=== PATIENT | female | born 1935 | race Caucasian/White ===

== ENCOUNTER → 2016-05-19 | Outpatient (CLI) | payer MEDICARE, BC ==
[~2016-05-19] MED LIST: ACETAMINOPHEN PO; AMITRYPTYLINE PO; ARICEPT5 M1 PO; ARTIFICIAL TEAR15 M4 OP; ARTIFICIAL15 ML OPTH OP; ASPIRIN81 M1 PO; AUGMENTIN PO; BENTYL20 MG PO; BLACK COHOSH40 M1 PO; BREO ELLIPTA 11 EACH INH; DESYREL50 MG PO; DIAZEPAM PO; DIAZEPAM2 MG PO; EVISTA60 M1 PO; FLONASE 0.05% N16 G1; HYDROCHLOROTH12.5 MG PO; ISOSORBIDE MONO30 M1 PO; LATANOPROST2.5 ML OU; LEVAQUIN PO; LEVOXYL150 MCG PO; LO-DOSE ASPIRIN81 M1 PO; LORTAB 5/500 TA1 TA1 PO; LOSARTAN POTASS50 MG PO; METOPROLOL SUCC25 MG PO; NITROGLYGERIN0.4 MG SL; NORVASC PO; PRAVASTATIN SOD40 MG PO; PRILOSEC20 M1 PO; RESTASIS1 EACH OU; SERTRALINE HCL100 M1 PO; SYNTHROID125 PO; TRICOR145 MG PO; VITAMIN D 22000 UNIT PO; ZOFRAN PO; ZOLOFT PO
--- NOTE | ~2016-05-19 | CR242 ---
[facility] A Service [facility] RADIOLOGY TEXT RESULTS PATIENT: MELBA WATKINS LOCATION: [facility] : 34 UNIT #: [id number] AGE: [address]: Whit Meyers MD SEX: F ORDER DR: [id number] [place] [id number] O MR#: [id number] Acc #: [id number] NAME: MELBA WATKINS : 1935 SEX: F STUDY DATE/TIME: 05/19/2016 14:03 UNIT: [facility] ROOM: STUDY DESCRIPTION: CR Thoracic Spine 2 Views Attending Physician: Whit Meyers M.D. Referring Physician: Micha Meyers M.D. Ordering Physician: Whit Meyers M.D. Primary Care Physician: Whit Meyers M.D. MEDICAL IMAGING REPORT This report is preliminary unless electronic signature is present. EXAM Thoracic spine series HISTORY Back pain beginning 4 days ago COMPARISON 01/31/2016 TECHNIQUE AP and lateral views of the thoracic spine were obtained. FINDINGS The AP view demonstrates a thoracic scoliosis unchanged from previous exam. On the lateral view there is exaggerated thoracic kyphosis. No fractures or destructive bone lesions are seen. The pedicles are intact at each level. No paraspinous masses are noted. IMPRESSION Scoliosis with mild multilevel thoracic degenerative disc disease. No acute bony abnormalities are seen. Dictated by... Angelito Peacock M.D. THIS IS AN ELECTRONICALLY VERIFIED REPORT Angelito Peacock M.D. at 05/19/2016 6:02 PM RLF/to TD: 05/19/2016 15:47 JOB #: [id number] [facility] A [facility] RADIOLOGY TEXT RESULTS PATIENT: MELBA WATKINS LOCATION: [facility] : 34 UNIT #: [id number] AGE: [address]: Whit Meyers MD SEX: F ORDER DR: MEDICAL IMAGING REPORT Page 1 of 1
--- NOTE | ~2016-05-19 | CR181 ---
[facility] A Service [facility] RADIOLOGY TEXT RESULTS PATIENT: MELBA WATKINS LOCATION: [facility] : 34 UNIT #: [id number] AGE: [address]: Whit Meyers MD SEX: F ORDER DR: [id number] [place] [id number] O MR#: [id number] Acc #: [id number] NAME: MELBA WATKINS : 1935 SEX: F STUDY DATE/TIME: 05/19/2016 14:03 UNIT: [facility] ROOM: STUDY DESCRIPTION: CR Lumbar Spine 2 or 3 Views Attending Physician: Whit Meyers M.D. Referring Physician: Micha Meyers M.D. Ordering Physician: Whit Meyers M.D. Primary Care Physician: Whit Meyers M.D. MEDICAL IMAGING REPORT This report is preliminary unless electronic signature is present. EXAM Lumbar spine series 05/19/2016 HISTORY Back pain beginning 4 days ago. COMPARISON 01/19/2009 TECHNIQUE 3 views lumbar spine were obtained. FINDINGS There is exaggerated lumbar lordosis with multilevel degenerative disc disease. This has progressed significantly since 2008. There is advanced degenerative disc disease at L1-2 with disc space narrowing and large osteophytes showing marked progression. At L2-3 there is a degenerative retrolisthesis with disc space narrowing also showing marked progression. There is a degenerative retrolisthesis across L3-4 with mild disc space narrowing. This shows mild progression since the previous exam. At L4-5 there is a grade 1 spondylolisthesis with lipping of the posterior margin of L5. There is moderate disc space narrowing and moderate facet hypertrophy. At L5-S1 there is mild degenerative disc disease and moderate bilateral facet disease. No fractures or destructive bone lesions are seen. IMPRESSION Multilevel lumbar degenerative disc and facet disease as described above level by level with malalignment at multiple levels. Overall significant progression of disease since 2008 as described above level by level. [facility] A [facility] RADIOLOGY TEXT RESULTS PATIENT: MELBA WATKINS LOCATION: [facility] : 34 UNIT #: [id number] AGE: [address]: Whit eMyers MD SEX: F ORDER DR: Dictated by... Angelito Peacock M.D. THIS IS AN ELECTRONICALLY VERIFIED REPORT Angelito Peacock M.D. at 05/19/2016 6:02 PM MAYRA/bonilla TD: 05/19/2016 15:57 JOB #: [id number] MEDICAL IMAGING REPORT Page 1 of 1
== END | disposition home or self-care (01) ==
LOC: SRAD 13:56
DX: M54.5 Low back pain (principal); M54.6 Pain in thoracic spine; M41.9 Scoliosis, unspecified; M51.34 Other intervertebral disc degeneration, thoracic region; M51.36 Other intervertebral disc degeneration, lumbar region
CPT/HCPCS: 72070; 72100

== ENCOUNTER 2016-06-09 18:21 | Emergency (ER) | payer MEDICARE, BC ==
--- NOTE | ~2016-06-09 | CT2 ---
[facility] A Service of [facility] RADIOLOGY TEXT RESULTS PATIENT: MELBA WATKINS LOCATION: [facility] : 34 UNIT #: [id number] AGE: [address]: Violeta Osorio MD SEX: F ORDER DR: [id number] [place] [id number] [facility]. [place], [place] [address] [id number] E MR#: [id number] Acc #: [id number] NAME: MELBA WATKINS : 1935 SEX: F STUDY DATE/TIME: 06/09/2016 20:32 UNIT: [facility] ROOM: STUDY DESCRIPTION: CT Abd and Pelv W Cont Attending Physician: Violeta Osorio M.D. Referring Physician: Whit Meyers M.D. Ordering Physician: Violeta Osorio M.D. Primary Care Physician: Whit Meyers M.D. MEDICAL IMAGING REPORT This report is preliminary unless electronic signature is present EXAM Abdomen and pelvis CT with contrast HISTORY Mid abdominal pain with nausea and diarrhea beginning this morning. COMPARISON 04/06/[address] exam was performed with one or more of the following radiation dose reduction techniques: automatic exposure control, adjustment of mA and/or kV according to patient size, and iterative reconstruction. Axial images were obtained with intravenous contrast. 100 mL of Isovue was used. FINDINGS There is a small right pleural effusion. This is unchanged from previous exam. There is mild scarring in the inferior lingular segment that is also unchanged. In the abdomen, no upper abdominal solid organ abnormalities are seen. There is no evidence of retroperitoneal adenopathy or ascites and no distended bowel loops are noted. In the pelvis, there is no evidence of adenopathy. There is a segment of sigmoid colon that shows somewhat prominent mucosal enhancement and mild mucosal thickening suspicious for colitis. Diverticula are seen in this area, but this does not appear represent diverticulitis. There is certainly no evidence of an abscess. Apparent postoperative changes are seen in the rectosigmoid area. The area of inflammation is just above the anastomosis. [facility] A Service of [facility] RADIOLOGY TEXT RESULTS PATIENT: MELBA WATKINS LOCATION: [facility] : 34 UNIT #: [id number] AGE: [address]: Violeta Osorio MD SEX: F ORDER DR: IMPRESSION 1. Mild mucosal thickening and mucosal enhancement in the sigmoid colon suggesting colitis over a fairly short segment. No evidence of abscess or perforation. There is also diverticulosis in this area but no evidence of diverticulitis. 2. Upper abdominal structures are unremarkable. 3. Small right pleural effusion noted but unchanged from the previous CT of 04/06/2016. Dictated by... Angelito Peacock M.D. THIS IS AN ELECTRONICALLY VERIFIED REPORT Angelito Peacock M.D. at 06/10/2016 10:07 AM MAYRA/amada TD: 06/09/2016 22:25 JOB #: [id number] MEDICAL IMAGING REPORT Page 1 of 1 COPY
[~2016-06-09 18:21] MED LIST changes: -ARICEPT5 M1 PO; -BENTYL20 MG PO; -BREO ELLIPTA 11 EACH INH; -DESYREL50 MG PO; -DIAZEPAM2 MG PO; -FLONASE 0.05% N16 G1; -ISOSORBIDE MONO30 M1 PO; -LATANOPROST2.5 ML OU; -LO-DOSE ASPIRIN81 M1 PO; -LOSARTAN POTASS50 MG PO; -METOPROLOL SUCC25 MG PO; -NITROGLYGERIN0.4 MG SL; -NORVASC PO; -RESTASIS1 EACH OU; -SERTRALINE HCL100 M1 PO; -SYNTHROID125 PO; -VITAMIN D 22000 UNIT PO; -ZOFRAN PO
[2016-06-09 18:49] LABS: BASOPHIL# 0.1 X10e3 (0-0.3); BASOPHIL% 0.8 % (0-2.5); EOSINOPHIL# 0.2 X10e3 (0-0.7); EOSINOPHIL% 1.6 % (0.0-7.0); HEMATOCRIT 36.6 % (35.0-45.0); HEMOGLOBIN 11.8 gm/dL (12.0-16.0); LYMPHOCYTE# 1.6 X10e3 (1.0-3.5); LYMPHOCYTE% 14.6 % (17.0-45.0); MEAN CELL VOLUME 88.4 FL (83-96); MEAN CORPUSCULAR HEMOGLOBIN 28.6 PG (28-34); MEAN CORPUSCULAR HGB CONC 32.3 g/dL (30-36); MEAN PLATELET VOLUME 7.8 FL (6.5-11.5); MONOCYTE# 0.7 X10e3 (0-1.0); MONOCYTE% 6.5 % (3.0-12.0); NEUTROPHIL# 8.5 X10e3 (1.5-7.1); NEUTROPHIL% 76.5 % (40-75); PLATELET COUNT 184 X10e3 (140-420); RED BLOOD COUNT 4.14 X10e (3.90-5.30); WHITE BLOOD COUNT 11.1 X10e3 (4.0-10.5)
[2016-06-09 18:52] LABS: DIFF IND NO
[2016-06-09 19:12] LABS: ALBUMIN SERUM 3.9 g/dL (3.5-5.0); BILIRUBIN, DIRECT 0.1 mg/dL (0.0-0.2); BILIRUBIN,INDIRECT 0.9 mg/dL (0.0-0.9); BUN/CREATININE RATIO 27.77; CALCIUM SERUM 9.2 mg/dL (8.4-10.2); CREATININE SERUM 0.9 mg/dL (0.6-1.4); PROTEIN TOTAL SERUM 7.2 g/dL (6.0-8.3)
[2016-06-09 19:58] LABS: URINE SOURCE CLEAN CATCH
[2016-06-09 20:04] LABS: URINE APPEARANCE CLEAR; URINE BILIRUBIN NEG (NEG); URINE BLOOD TRACE (NEG); URINE COLOR YELLOW; URINE GLUCOSE NEG (NEG); URINE KETONE NEG (NEG); URINE LEUKOCYTE ESTERASE 1+ (NEG); URINE NITRATE NEG (NEG); URINE PH 6.5 (5-8); URINE PROTEIN NEG (NEG); URINE SPECIFIC GRAVITY 1.012 (1.003-1.035); URINE UROBILINOGEN 0.2 MG/DL (NEG)
[2016-06-09 20:07] LABS: CULTURE INDICATED? YES; URINE BACTERIA AUWI NEG (NEGATIVE); URINE SQUAMOUS EPITHELIAL CELL NONE SEEN /[HPF]
== END 2016-06-09 21:45 | disposition home or self-care (01) ==
LOC: CED 18:21
PROVIDERS: Emergency Medicine
DX: K50.10 Crohn's disease of large intestine without complications (principal); I25.10 Atherosclerotic heart disease of native coronary artery without angina pectoris; E78.5 Hyperlipidemia, unspecified; I10 Essential (primary) hypertension; J45.909 Unspecified asthma, uncomplicated; Z88.1 Allergy status to other antibiotic agents; Z88.8 Allergy status to other drugs, medicaments and biological substances
CPT/HCPCS: 36415; 74177; 80048; 80076; 81003; 85025; 87086; 96361; 96374; 96375; 99284; J2405; J3360; Q9967

== ENCOUNTER 2016-06-13 12:09 | Emergency (ER) | payer MEDICARE, BC ==
[2016-06-13 12:04] LABS: BASOPHIL# 0.1 X10e3 (0-0.3); BASOPHIL% 0.5 % (0-2.5); EOSINOPHIL# 0.1 X10e3 (0-0.7); EOSINOPHIL% 0.8 % (0.0-7.0); HEMATOCRIT 35.4 % (35.0-45.0); HEMOGLOBIN 11.5 gm/dL (12.0-16.0); LYMPHOCYTE% 8.9 % (17.0-45.0); MEAN CELL VOLUME 88.8 FL (83-96); MEAN CORPUSCULAR HEMOGLOBIN 28.9 PG (28-34); MEAN CORPUSCULAR HGB CONC 32.5 g/dL (30-36); MONOCYTE# 0.8 X10e3 (0-1.0); MONOCYTE% 6.9 % (3.0-12.0); NEUTROPHIL# 9.5 X10e3 (1.5-7.1); NEUTROPHIL% 82.9 % (40-75); PLATELET COUNT 181 X10e3 (140-420); RED BLOOD COUNT 3.98 X10e (3.90-5.30); RED CELL DISTRIBUTION WIDTH 13.1 % (11.0-15.5); WHITE BLOOD COUNT 11.4 X10e3 (4.0-10.5)
[2016-06-13 12:05] LABS: DIFF IND NO
[2016-06-13 12:32] LABS: ALBUMIN SERUM 3.9 g/dL (3.5-5.0); BILIRUBIN, DIRECT 0.1 mg/dL (0.0-0.2); BILIRUBIN,INDIRECT 0.6 mg/dL (0.0-0.9); BILIRUBIN,TOTAL 0.7 mg/dL (0.2-2.0); BUN/CREATININE RATIO 22.22; CALCIUM SERUM 9.4 mg/dL (8.4-10.2); CREATININE SERUM 0.9 mg/dL (0.6-1.4); POTASSIUM 4.3 mmol/L (3.5-5.1); PROTEIN TOTAL SERUM 6.9 g/dL (6.0-8.3)
[2016-06-13 13:31] LABS: URINE SOURCE CLEAN CATCH
[2016-06-13 13:38] LABS: URINE APPEARANCE CLEAR; URINE BILIRUBIN NEG (NEG); URINE BLOOD TRACE (NEG); URINE COLOR YELLOW; URINE GLUCOSE NEG (NEG); URINE KETONE NEG (NEG); URINE LEUKOCYTE ESTERASE NEG (NEG); URINE NITRATE NEG (NEG); URINE PH 5.5 (5-8); URINE PROTEIN NEG (NEG); URINE UROBILINOGEN 0.2 MG/DL (NEG)
[2016-06-13 13:41] LABS: URBCS1 AUWI 0-2 /[HPF] (0-2); URINE BACTERIA AUWI NEG (NEGATIVE); URINE SQUAMOUS EPITHELIAL CELL NONE SEEN /[HPF]; UWBCS1 AUWI 0-2 (0-5)
[2016-06-13 13:44] LABS: CULTURE INDICATED? NO
== END 2016-06-13 19:40 | disposition home or self-care (01) ==
LOC: CED 12:09
PROVIDERS: Emergency Medicine
DX: R19.7 Diarrhea, unspecified (principal); Z79.899 Other long term (current) drug therapy; Z79.82 Long term (current) use of aspirin; Z88.8 Allergy status to other drugs, medicaments and biological substances; Z88.1 Allergy status to other antibiotic agents
CPT/HCPCS: 36415; 80048; 80076; 81003; 82150; 83690; 85025; 87045; 87177; 87209; 87427; 87493; 87899; 99283

== ENCOUNTER 2016-08-05 20:07 | Inpatient (IN) | payer MEDICARE, BC ==
--- NOTE | ~2016-08-05 | CT71 ---
[facility] A Service [facility] RADIOLOGY TEXT RESULTS PATIENT: MELBA WATKINS LOCATION: [facility] : 34 UNIT #: [id number] AGE: [address]: Robyn Bailey MD SEX: F ORDER DR: [id number] [facility] [address] [place] [facility]. [place], [place] [address] [id number] I MR#: [id number] Acc #: [id number] NAME: MELBA WATKINS. : 1935 SEX: F STUDY DATE/TIME: 08/12/2016 17:32 UNIT: [facility] ROOM: [facility] STUDY DESCRIPTION: CT Head Wo Contrast Attending Physician: Robyn Bailey M.D. Ordering Physician: Koby Gipson M.D. Primary Care Physician: Whit Meyers M.D. MEDICAL IMAGING REPORT This report is preliminary unless electronic signature is present EXAM CT brain without contrast HISTORY Dizzy and headache and lightheaded today. TECHNIQUE This CT exam was performed with one or more of the following radiation dose reduction techniques: automatic exposure control, adjustment of mA and/or kV according to patient size, and iterative reconstruction. FINDINGS CT brain without contrast is partly limited by motion. No intracranial hemorrhage, mass or edema is identified. Mild generalized cerebral cortical atrophy. Mild chronic ischemic changes in the deep white matter bilaterally. IMPRESSION 1. No acute findings are identified. 2. Mild generalized cerebral cortical atrophy and mild chronic ischemic changes in the deep white matter. Dictated by... Nolan Byrnes M.D. THIS IS AN ELECTRONICALLY VERIFIED REPORT Nolan Byrnes M.D. at 08/20/2016 10:34 PM ADELA/amada TD: 08/13/2016 00:33 JOB #: [id number] [facility] A Service [facility] RADIOLOGY TEXT RESULTS PATIENT: MELBA WATKINS LOCATION: [facility] : 34 UNIT #: [id number] AGE: [address]: Robyn Bailey MD SEX: F ORDER DR: MEDICAL IMAGING REPORT Page 1 of 1 COPY
--- NOTE | ~2016-08-05 | DS ---
Unit #: [id number] #: [id number] Patient: MELBA WATKINS [id number] [address] [address] [id number] I MR#: [id number] NAME: MELBA WATKINS. ROOM: 238 Age: Sex: F Admission Date: 08/06/2016 : 1935 Discharge Date: 08/12/2016 Attending Physician: Robyn Bailey M.D. Primary Care Physician: Whit Meyers M.D. DISCHARGE SUMMARY Cut off at end ADMISSION DIAGNOSES 1. Diarrhea. 2. Urinary tract infection. 3. Acute kidney injury. 4. Hypothyroidism. 5. Anemia of chronic disease. 6. Hypertension. 7. History of colon cancer. 8. Depression and anxiety. 9. Dementia. 10. Dyslipidemia. 11. History of coronary artery disease. DISCHARGE DIAGNOSES 1. Diarrhea, resolved, status post gastroenterology evaluation. 2. Urinary tract infection. 3. Acute kidney injury, resolved. 4. Hypothyroidism. 5. Anemia of chronic disease. 6. Hypertension. 7. History of colon cancer. 8. Depression and anxiety. 9. Dementia. 10. Dyslipidemia. 11. History of coronary artery disease. 12. Dizziness. 13. Questionable vaginal bleeding. CONSULTANTS Dr. Morrissey, gastroenterology. DIAGNOSTIC STUDIES 1. CT abdomen and pelvis on admission. 1) Stable chronic right small pleural effusion. 2) Postoperative changes in the lower rectum with some presacral soft tissue stranding. This is unchanged from prior and is presumably the sequelae of the therapy for colon cancer. The rest of the GI tract is grossly normal. 3) Tiny nonobstructive stones in the right kidney, no hydronephrosis seen on either side. Tiny calcification in the left hemipelvis measuring 2 mm in size. Could reflect nonobstructive distal urethral stone or may simply reflect a phlebolith. 2. Urine culture showed Enterococcus species, more than 100,000 colony, Unit #: [id number] #: [id number] Patient: MELBA WATKINS resistant to ampicillin, sensitive to nitrofurantoin. 3. Stool studies negative for parasites, salmonella and shigella. No C difficile. HISTORY OF PRESENT HOSPITAL STAY Please refer to History and Physical done by my colleague, Dr. David, for initial presentation of this female. HOSPITAL COURSE Diarrhea, status post gastroenterology evaluation, status post negative stool studies. She was treated with supportive care and symptomatic management. Continue Imodium p.r.n., diarrhea currently resolved. Stable from Gastroenterology standpoint to be discharged. Urinary tract infection, culture as above. She was treated with Macrobid, continue for two more days for a total of seven days. Newly complaints of dizziness from this afternoon. The patient is getting a STAT CT of the head. If the CT of the head is negative, will be okay to discharge to a rehab with outpatient followup. Questionable vaginal bleeding. We do not have, unfortunately, a [employer] specialist to get on board. Will check the STAT hemoglobin and hematocrit and transfuse p.r.n. Will hold the discharge if hemoglobin is significantly lower from yesterday's 10.4. Acute renal failure, resolved. Last BUN 14, creatinine 0.8 from yesterday. History of coronary artery disease. Continue current medications. History of anemia of chronic disease, as above. Hypothyroidism. Continue replacement. Dyslipidemia. Continue replacement. Depression and anxiety. Continue home medications. History of dementia. Continue home medications. DISCHARGE MEDICATIONS 1. Valium 5 mg p.o. b.i.d. p.r.n. for anxiety. 2. Tylenol p.r.n. 3. Flonase nasally daily. 4. Hydrocortisone suppositories for rectal area q.4 h. p.r.n. 5. Paxil 20 mg daily. 6. Desyrel 50 mg h.s. 7. Lomotil p.r.n. for diarrhea. 8. Zofran p.r.n. for nausea. 9. Colestid 1 gram p.o. t.i.d. 10. Bentyl 20 mg p.o. t.i.d. p.r.n. for abdominal cramps. 11. Dulera two puff inhaler b.i.d. 12. Amlodipine 5 mg daily. 13. Metoprolol 25 mg b.i.d. 14. Aricept 5 mg h.s. 15. Fluticasone inhaler daily. 16. Xalatan eye drops daily. 17. Pravastatin 40 mg daily. Unit #: [id number] #: [id number] Patient: MELBA WATKINS 18. Losartan 50 mg daily. 19. Restasis Dictated by... Yadiel Rocha/mehran TD: 08/12/2016 17:30 JOB #: [id number] DISCHARGE SUMMARY Page 1 of 1 X Koby Gipson MD X DISCHARGE SUMMARY
--- NOTE | ~2016-08-05 | CO ---
Unit #: [id number] #: [id number] Patient: MELBA ESTEBAN [id number] [address] [place], [place] [address] [id number] I MR#: [id number] NAME: MELBA ESTEBAN. ROOM: 238 Age: 80 Sex: F Admission Date: 08/06/2016 : 1935 Attending Physician: Robyn Bailey M.D. Primary Care Physician: Whit Meyers M.D. Consultation Date: 08/10/2016 CONSULTATION REPORT PRIMARY CARE PHYSICIAN Whit Meyers M.D. REASON FOR CONSULTATION Diarrhea. HISTORY OF PRESENT ILLNESS Ms. Esteban is an 80-year-old white female. The patient presented with history of profuse watery nonbloody diarrhea along with fecal incontinence going up to 15 to 20 times a day. The patient says she took some antibiotics for urinary tract infection, which was subsequently stopped by her PCP. The diarrhea was attributed to antibiotics. She has had stool study, which are negative for enteric pathogens and C diff toxin. The patient has a remote history of colon cancer. The antibiotic for UTI was stopped. PAST MEDICAL HISTORY Significant for history of hypertension, hyperlipidemia, gastroesophageal reflux, depression, anxiety, dementia, and hyperlipidemia. PAST SURGICAL HISTORY Included colectomy for colon cancer followed by radiation chemotherapy. HOME MEDICATIONS Include pravastatin, Norvasc, Desyrel, sertraline, Aricept, Breo Ellipta, Synthroid, Bentyl, Imdur, Lopressor, nitroglycerin, losartan, low-dose aspirin 81 mg p.o. as well as Zofran, latanoprost, and diazepam. ALLERGIES She is allergic to erythromycin, cleomycin, Flagyl, Zithromax, trazodone, and ciprofloxacin. FAMILY HISTORY None of colon, pancreatic cancer, or liver disease. SOCIAL HISTORY Lives at home. Does not smoke or drink alcohol. REVIEW OF SYSTEMS Detailed review of organ systems does not reveal any recent weight loss. No history of fever, chills, or rigors. No history of headache, seizures, chest pain, or syncope. No history of cough, expectoration, or hemoptysis. No history of dysuria, hematuria, or pyuria. No history of focal seizures or extremity weakness. Unit #: [id number] #: [id number] Patient: MELBA ESTEBAN PHYSICAL EXAMINATION GENERAL: She is awake, alert, and oriented, appears comfortable. Both she and her daughter having had their own individual plates and the patient is eating fried hush puppies and [place]er fries and has nearly finished her whole meal from [employer]. She appears hemodynamically stable. VITAL SIGNS: Normal with a temperature of 97.7, pulse is 59 per minute and regular, respiratory rate is 20, blood pressure 142/46. Her weight is 149 pounds, which is close to her baseline weight. She has no pallor, icterus, lymphadenopathy, or peripheral edema. CARDIOVASCULAR: Normal heart sounds. No murmurs. LUNGS: Auscultation over the lungs reveal normal breath sounds. Good air entry. ABDOMEN: Soft and nontender. Liver and spleen are not palpable. Bowel sounds normal. DIAGNOSTIC STUDIES LABORATORY RESULTS: Shows an initial presentation of 14,000 leukocytosis with left shift. It was subsequently resolved. Serum chemistry is completely normal with normal albumin and LFTs. The patient's stool studies are negative for C diff toxin as well as for enteric pathogens. IMAGING STUDIES: CT scan of the abdomen and pelvis was done and does not show any evidence of colitis. CLINICAL IMPRESSION The patient most likely had either antibiotic induced diarrhea or viral enteritis. In any event, either of one these possibly should resolve spontaneously and I see little reason to why elevate her endoscopically. Especially, stool studies are negative. We will add Colestid 1 g p.o. t.i.d. for symptomatic relief in the meantime. This is safer especially in view of the fact that the patient's enteric pathogens and Clostridium difficile are negative. Also, repeat CBC and CMP in the morning. The above plan discussed with the patient and her daughter and they were reassured. Thank you very much for asking me to see this pleasant woman. I appreciate the consult. Dictated by... Yadiel Lobo/morena TD: 08/11/2016 02:08 JOB #: [id number] Unit #: [id number] #: [id number] Patient: MELBA ESTEBAN CONSULTATION REPORT Page 1 of 1 X Jose Raul Morrissey MD CONSULTATION REPORT
--- NOTE | ~2016-08-05 | DS ---
Unit #: [id number] #: [id number] Patient: MELBA WATKINS [id number] [address] [place], [place] [address] [id number] I MR#: [id number] NAME: MELBA WATKINS. ROOM: 238 Age: Sex: F Admission Date: 08/06/2016 : 1935 Discharge Date: 08/12/2016 Attending Physician: Robyn Bailey M.D. Primary Care Physician: Whit Meyers M.D. DISCHARGE SUMMARY ADDENDUM Now, patient and patient's son are more receptive for the further evaluation. However, patient tells me that her dizzy spells come when she changed the position from lying down to upright. Again, STAT CT of the head is pending, if it is negative, I will also get the orthostatic hypotensions. If orthostatic hypotensions are positive, then I will discharge the patient to a rehab to continue physical therapy, reconditioning, and outpatient followup with either her primary foundry equipment mechanic or the neurologist. Dictated by... Yadiel Rocha/mehran TD: 08/12/2016 17:56 JOB #: [id number] DISCHARGE SUMMARY Page 1 of 1 X Koby Gipson MD X DISCHARGE SUMMARY
--- NOTE | ~2016-08-05 | CT4 ---
[facility] A Service of [facility] RADIOLOGY TEXT RESULTS PATIENT: MELBA WATKINS LOCATION: [facility] [id number] : 34 UNIT #: [id number] AGE: [address]: Robyn Bailey MD SEX: F ORDER DR: [id number] [facility] [address] [place], [place] [address] [id number] I MR#: [id number] Acc #: [id number] NAME: MELBA WATKINS. : 1935 SEX: F STUDY DATE/TIME: 08/06/2016 00:57 UNIT: [facility] ROOM: 14207 STUDY DESCRIPTION: CT Abd and Pelv Wo Cont Attending Physician: Robyn Bailey M.D. Ordering Physician: Antoinette Cohen M.D. Primary Care Physician: Whit Meyers M.D. MEDICAL IMAGING REPORT This report is preliminary unless electronic signature is present EXAM Abdomen and pelvis CT 08/06/2016 0057 hours INDICATIONS Nausea, vomiting and diarrhea for the last 4 days. Colon cancer. TECHNIQUE Axial images were obtained through the abdomen and pelvis without contrast. Multiplanar reformats were obtained. Comparison made with 06/09/2016. This CT exam was performed with one or more of the following radiation dose reduction techniques: automatic control, adjustment of mA and/or kV according to patient size, and iterative reconstruction. FINDINGS ABDOMEN: There is a persistent small right pleural effusion which is relatively stable. There is some chronic atelectasis or scarring in the lingula. Gallbladder is surgically absent. Tiny nonobstructing stones are present in the right kidney. No ureteral stones are seen and there is no hydronephrosis. The unenhanced solid organs are otherwise normal. There is diffuse atherosclerotic disease, but there is no aortic aneurysm. The unopacified GI tract is normal. No adenopathy or free fluid is seen. PELVIS: Urinary bladder is normal. Solid pelvic organs have an age-appropriate appearance. There is a low rectal anastomosis with presacral fat stranding. This is unchanged. The fat stranding is presumably the sequelae of prior therapy for colon cancer. Unopacified GI tract is otherwise within normal limits. There is a tiny calcification in the left hemipelvis which could reflect a phlebolith or a nonobstructing distal ureteral stone on the left. Correlate with urinalysis results. There is degenerative disease in the lumbar spine with spondylolisthesis at L4-5. This is unchanged. No suspicious osseous lesions in the abdomen or pelvis. [facility] Service of [facility] RADIOLOGY TEXT RESULTS PATIENT: MELBA WATKINS LOCATION: [facility] [address]-02 : 34 UNIT #: [id number] AGE: [address]: Robyn Bailey MD SEX: F ORDER DR: IMPRESSION 1. Stable chronic right small pleural effusion. 2. Postoperative changes in the lower rectum with some presacral soft tissue stranding. This is unchanged from prior and is presumably the sequelae of therapy for colon cancer. The rest of the GI tract is grossly normal. 3. Tiny nonobstructing stones in the right kidney. No hydronephrosis is seen on either side. There is a tiny calcification in the left hemipelvis measuring about 2 mm in size. This could reflect a nonobstructing distal ureteral stone on the left or may simply reflect a phlebolith. Correlation with urinalysis results is recommended. Dictated by... Angelito Moran Jr., M.D. THIS IS AN ELECTRONICALLY VERIFIED REPORT Angelito Moran Jr., M.D. at 08/06/2016 5:53 AM FRIDA/bruno TD: 08/06/2016 05:36 JOB #: [id number] MEDICAL IMAGING REPORT Page 1 of 1 COPY
--- NOTE | ~2016-08-05 | HP ---
Unit #: [id number] #: [id number] Patient: MELBA WATKINS [id number] [address] [place], [place] [address] [id number] MR#: [id number] NAME: MELBA WATKINS ROOM: 467 Age: 80 Sex: F Admission Date: 08/06/2016 : 1935 Attending Physician: Robyn Bailey M.D. Primary Care Physician: Whit Meyers M.D. HISTORY AND PHYSICAL HISTORY OF PRESENT ILLNESS This 80-year-old white female with recent UTI on p.o. antibiotics, Cefdinir 300 mg b.i.d., developed nausea, vomiting and diarrhea. The patient stopped taking the antibiotics a few days ago but had persistent nausea, vomiting and diarrhea. The patient arrived in the emergency room, found to be afebrile, white count slightly elevated, mild acute kidney injury. CT scan of the abdomen and pelvis was negative and admitted for treatment of same. PAST MEDICAL HISTORY Hypothyroidism, colon cancer status post colectomy, radiation and chemotherapy, hypertension, hyperlipidemia, GE reflux disease, depression, generalized anxiety disorder, dementia, hyperlipidemia. SOCIAL HISTORY No IV drug use. No street drug use. No alcohol. No tobacco. FAMILY HISTORY Noncontributory. ALLERGIES Erythromycin, Cleocin, Flagyl, Zithromax, Trazodone, Cipro. MEDICATIONS PRIOR TO ADMISSION 1. Losartan 50 mg daily. 2. Pravastatin 40 mg daily. 3. Norvasc 5 mg daily. 4. Desyrel 50 mg q.h.s. 5. Sertraline 100 mg b.i.d. 6. Aricept 5 mg q.h.s. 7. Breo Ellipta 100/25 one inhalation daily. 8. Synthroid 125 mcg daily. 9. Bentyl 20 mg t.i.d. p.r.n. 10. Imdur ER 30 mg daily. 11. Lopressor 25 mg p.o. b.i.d. 12. Nitroglycerin sublingual p.r.n. 13. Vitamin D 2,000 units daily. 14. Low dose aspirin 81 mg enteric coated daily. 15. Flonase 0.5% daily. 16. Restasis eye drops one drop both eyes daily. 17. Zofran 4 mg p.o. q.8 hours p.r.n. for nausea or vomiting. 18. Latanoprost 2.5 mL both eyes q.h.s. 19. Diazepam 5 mg p.o. b.i.d. p.r.n. for anxiety. Unit #: [id number] #: [id number] Patient: MELBA WATKINS PHYSICAL EXAMINATION GENERAL APPEARANCE: She is awake, alert, oriented x3, in no acute distress. VITAL SIGNS: Afebrile. Pulse 57. Respirations 19. Blood pressure 135/51. O2 sat 98% on room air. HEENT: Unremarkable. NECK: Supple without JVD, bruits, adenopathy or thyromegaly. CHEST: Clear to auscultation. HEART: Regular rate and rhythm without any murmurs, rubs or gallops. ABDOMEN: Soft, nondistended, nontender with positive bowel sounds and no hepatosplenomegaly. EXTREMITIES: Trace bilateral lower extremity edema. GENITOURINARY: Deferred. RECTAL: Deferred. NEUROLOGIC: Grossly intact. DIAGNOSTIC STUDIES LABORATORY: CBC normal except for a white count of 14. CMP normal except for a BUN of 24 and a GFR of 52.8, alkaline phosphatase 127. Lipase normal. Urinalysis: 3+ leukocytes, 2+ blood, 10 to 25 RBCs, 50 to 100 WBC. IMAGING: CT scan of the abdomen and pelvis: Stable small right pleural effusion, postop changes of the rectum, nonobstructing stones in the left kidney. IMPRESSION 1. UTI. 2. Acute kidney injury. 3. Antibiotic associated diarrhea. 4. History of irritable bowel syndrome. 5. History of colitis. 6. History of colon cancer. 7. Hypertension. 8. Hyperlipidemia. 9. GE reflux disease. 10. Generalized anxiety disorder. 11. Major depressive disorder. 12. Dementia. 13. Hypothyroidism. 14. Coronary artery disease. PLAN IV fluids. Stool for C. diff. toxin. Lomotil p.r.n. Resume home meds less vitamin D. Further evaluation pending results of the above and urine culture. Dictated by Yadiel Olivarez/alma TD: 08/06/2016 15:14 JOB #: [id number] Unit #: [id number] #: [id number] Patient: MELBA WATKINS HISTORY AND PHYSICAL Page 1 of 1 X Lennox David MD HISTORY AND PHYSICAL
--- NOTE | ~2016-08-05 | DS ---
Unit #: [id number] #: [id number] Patient: MELBA WATKINS [id number] [address] [place], [place] [address] [id number] I MR#: [id number] NAME: MELBA WATKINS. ROOM: 238 Age: Sex: F Admission Date: 08/06/2016 : 1935 Discharge Date: 08/12/2016 Attending Physician: Robyn Bailey M.D. Primary Care Physician: Whit Meyers M.D. DISCHARGE SUMMARY ADDENDUM DISCHARGE MEDICATIONS 1. Restasis 2 drops to the eyes b.i.d. 2. Florastor 250 mg p.o. b.i.d. 3. Aspirin 81 mg daily. 4. Synthroid 125 mcg daily. 5. Macrobid 100 mg b.i.d. for 2 more days. 6. Imdur 30 mg daily. 7. Nitrostat p.r.n. 8. Cholecalciferol 1000 units p.o. daily. Again, STAT CT of the head and STAT hemoglobin and hematocrit is pending. If the CT is negative and hemoglobin and hematocrit are stable, the patient will be discharged to a subacute rehab to follow up with the primary care physician, subacute rehab and outpatient followup with neurology. Again, patient and patient's son insisting to be discharged today and refusing further workup for her dizziness with an MRI or the neurology evaluation. Therefore, again, if the STAT CT head is negative and hemoglobin and hematocrit are stable, the patient will be discharged. Dictated by... Yadiel Rocha/mehran TD: 08/12/2016 17:52 JOB #: [id number] Unit #: [id number] #: [id number] Patient: MELBA WATKINS DISCHARGE SUMMARY Page 1 of 1 X Koby Gipson MD DISCHARGE SUMMARY
[2016-08-05 21:08] LABS: BASOPHIL# 0.1 X10e3 (0-0.3); BASOPHIL% 0.4 % (0-2.5); EOSINOPHIL# 0.2 X10e3 (0-0.7); EOSINOPHIL% 1.8 % (0.0-7.0); HEMATOCRIT 37.5 % (35.0-45.0); HEMOGLOBIN 12.2 gm/dL (12.0-16.0); LYMPHOCYTE# 2.1 X10e3 (1.0-3.5); MEAN CELL VOLUME 87.6 FL (83-96); MEAN CORPUSCULAR HEMOGLOBIN 28.6 PG (28-34); MEAN CORPUSCULAR HGB CONC 32.6 g/dL (30-36); MEAN PLATELET VOLUME 7.4 FL (6.5-11.5); MONOCYTE# 0.9 X10e3 (0-1.0); MONOCYTE% 6.8 % (3.0-12.0); NEUTROPHIL# 10.6 X10e3 (1.5-7.1); PLATELET COUNT 222 X10e3 (140-420); RED BLOOD COUNT 4.28 X10e (3.90-5.30)
[2016-08-05 21:10] LABS: DIFF IND NO
[2016-08-05 21:32] LABS: ALBUMIN SERUM 4.5 g/dL (3.5-5.0); BILIRUBIN, DIRECT 0.1 mg/dL (0.0-0.2); BILIRUBIN,INDIRECT 0.7 mg/dL (0.0-0.9); BILIRUBIN,TOTAL 0.8 mg/dL (0.2-2.0); CALCIUM SERUM 9.6 mg/dL (8.4-10.2); GLOM FILT RATE Estimated 52.8 mL/min (>60); POTASSIUM 4.1 mmol/L (3.5-5.1); PROTEIN TOTAL SERUM 8.1 g/dL (6.0-8.3)
[2016-08-06 01:43] LABS: URINE SOURCE CLEAN CATCH
[2016-08-06 01:50] LABS: URINE APPEARANCE CLOUDY; URINE BILIRUBIN NEG (NEG); URINE BLOOD 2+ (NEG); URINE COLOR YELLOW; URINE GLUCOSE NEG (NEG); URINE KETONE NEG (NEG); URINE LEUKOCYTE ESTERASE 3+ (NEG); URINE NITRATE NEG (NEG); URINE PROTEIN NEG (NEG); URINE SPECIFIC GRAVITY 1.014 (1.003-1.035); URINE UROBILINOGEN 0.2 MG/DL (NEG)
[2016-08-06] MEDS ORDERED: LOSARTAN POTASS50 MG PO (01:51)
[2016-08-06 01:53] LABS: CULTURE INDICATED? YES; URINE BACTERIA AUWI NEG (NEGATIVE); URINE SQUAMOUS EPITHELIAL CELL NONE SEEN /[HPF]; UWBCS1 AUWI 50-100 (0-5)
[2016-08-06] MEDS ORDERED: DESYREL50 MG PO (05:34)
[2016-08-06] MEDS ORDERED: ARICEPT5 M1 PO (05:34)
[2016-08-06] MEDS ORDERED: SERTRALINE HCL100 M1 PO (05:34)
[2016-08-06] MEDS ORDERED: PRAVASTATIN SOD40 MG PO (05:34)
[2016-08-06] MEDS ORDERED: NORVASC PO (05:34)
[2016-08-06] MEDS ORDERED: ISOSORBIDE MONO30 M1 PO (05:35)
[2016-08-06] MEDS ORDERED: BREO ELLIPTA 11 EACH INH (05:35)
[2016-08-06] MEDS ORDERED: SYNTHROID125 PO (05:35)
[2016-08-06] MEDS ORDERED: BENTYL20 MG PO (05:35)
[2016-08-06] MEDS ORDERED: METOPROLOL SUCC25 MG PO (05:36)
[2016-08-06] MEDS ORDERED: NITROGLYGERIN0.4 MG SL (05:36)
[2016-08-06] MEDS ORDERED: VITAMIN D 22000 UNIT PO (05:36)
[2016-08-06] MEDS ORDERED: FLONASE 0.05% N16 G1 (05:37)
[2016-08-06] MEDS ORDERED: RESTASIS1 EACH OU (05:37)
[2016-08-06] MEDS ORDERED: LO-DOSE ASPIRIN81 M1 PO (05:37)
[2016-08-06] MEDS ORDERED: ZOFRAN PO (05:38)
[2016-08-06] MEDS ORDERED: LATANOPROST2.5 ML OU (05:38)
[2016-08-06] MEDS ORDERED: DIAZEPAM2 MG PO (05:38)
[2016-08-06 06:51] LABS: BASOPHIL# 0.1 X10e3 (0-0.3); BASOPHIL% 0.5 % (0-2.5); EOSINOPHIL# 0.2 X10e3 (0-0.7); EOSINOPHIL% 1.9 % (0.0-7.0); HEMATOCRIT 33.4 % (35.0-45.0); LYMPHOCYTE# 1.5 X10e3 (1.0-3.5); LYMPHOCYTE% 14.9 % (17.0-45.0); MEAN CELL VOLUME 87.9 FL (83-96); MEAN CORPUSCULAR HEMOGLOBIN 28.8 PG (28-34); MEAN CORPUSCULAR HGB CONC 32.8 g/dL (30-36); MONOCYTE# 0.9 X10e3 (0-1.0); MONOCYTE% 8.8 % (3.0-12.0); NEUTROPHIL# 7.6 X10e3 (1.5-7.1); NEUTROPHIL% 73.9 % (40-75); PLATELET COUNT 173 X10e3 (140-420); RED CELL DISTRIBUTION WIDTH 12.7 % (11.0-15.5); WHITE BLOOD COUNT 10.3 X10e3 (4.0-10.5)
[2016-08-06 07:03] LABS: DIFF IND NO
[2016-08-06 07:25] LABS: BUN/CREATININE RATIO 18.18; CALCIUM SERUM 8.9 mg/dL (8.4-10.2); CREATININE SERUM 1.1 mg/dL (0.6-1.4); GLOM FILT RATE Estimated 47.1 mL/min (>60)
[2016-08-07 03:28] LABS: HEMATOCRIT 34.6 % (35.0-45.0); HEMOGLOBIN 11.5 gm/dL (12.0-16.0); MEAN CORPUSCULAR HEMOGLOBIN 29.3 PG (28-34); MEAN CORPUSCULAR HGB CONC 33.2 g/dL (30-36); RED BLOOD COUNT 3.93 X10e (3.90-5.30); RED CELL DISTRIBUTION WIDTH 12.8 % (11.0-15.5)
[2016-08-07 03:53] LABS: BUN/CREATININE RATIO 15.55; CALCIUM SERUM 8.6 mg/dL (8.4-10.2); CREATININE SERUM 0.9 mg/dL (0.6-1.4); POTASSIUM 3.5 mmol/L (3.5-5.1)
[2016-08-09 07:31] LABS: CALCIUM SERUM 8.9 mg/dL (8.4-10.2); CREATININE SERUM 0.6 mg/dL (0.6-1.4); GLOM FILT RATE Estimated 85.5 mL/min (>60); POTASSIUM 3.9 mmol/L (3.5-5.1)
[2016-08-11 06:34] LABS: HEMATOCRIT 31.2 % (35.0-45.0); HEMOGLOBIN 10.4 gm/dL (12.0-16.0); MEAN CELL VOLUME 87.7 FL (83-96); MEAN CORPUSCULAR HEMOGLOBIN 29.2 PG (28-34); MEAN CORPUSCULAR HGB CONC 33.3 g/dL (30-36); MEAN PLATELET VOLUME 7.8 FL (6.5-11.5); RED BLOOD COUNT 3.56 X10e (3.90-5.30); WHITE BLOOD COUNT 10.3 X10e3 (4.0-10.5)
[2016-08-11 07:49] LABS: ALBUMIN SERUM 3.3 g/dL (3.5-5.0); BILIRUBIN,TOTAL 0.7 mg/dL (0.2-2.0); BUN/CREATININE RATIO 17.5; CALCIUM SERUM 9.1 mg/dL (8.4-10.2); CREATININE SERUM 0.8 mg/dL (0.6-1.4); GLOM FILT RATE Estimated 69.2 mL/min (>60); POTASSIUM 3.9 mmol/L (3.5-5.1); PROTEIN TOTAL SERUM 5.9 g/dL (6.0-8.3)
[2016-08-12 17:14] LABS: HEMATOCRIT 34.5 % (35.0-45.0); HEMOGLOBIN 11.3 gm/dL (12.0-16.0)
[2016-08-12 17:32] LABS: CALCIUM SERUM 9.4 mg/dL (8.4-10.2); CREATININE SERUM 0.8 mg/dL (0.6-1.4); GLOM FILT RATE Estimated 69.2 mL/min (>60); POTASSIUM 3.8 mmol/L (3.5-5.1)
== END 2016-08-12 20:10 | DRG 683 ==
LOC: CED 20:07 → CEDOF 08-06 02:10 → CED 08-06 02:30 → CEDOF 08-06 02:30 → C4C 08-06 10:50 → C2A 08-06 10:50 → CEDOF 08-06 10:50 → C4C 08-06 13:56 → C2A 08-08 12:45
PROVIDERS: Hospitalist; Internal Medicine; Internal Medicine Gastroenterology; Physician Assistant Medical
DX: N17.9 Acute kidney failure, unspecified (principal); N39.0 Urinary tract infection, site not specified; K52.1 Toxic gastroenteritis and colitis; F03.90 Unspecified dementia, unspecified severity, without behavioral disturbance, psychotic disturbance, mood disturbance, and anxiety; E03.9 Hypothyroidism, unspecified; Z85.038 Personal history of other malignant neoplasm of large intestine; I10 Essential (primary) hypertension; E78.5 Hyperlipidemia, unspecified; K21.9 Gastro-esophageal reflux disease without esophagitis; F32.9 Major depressive disorder, single episode, unspecified; F41.1 Generalized anxiety disorder; T36.95XA Adverse effect of unspecified systemic antibiotic, initial encounter; D64.89 Other specified anemias; R42 Dizziness and giddiness; N93.9 Abnormal uterine and vaginal bleeding, unspecified; B95.2 Enterococcus as the cause of diseases classified elsewhere; I25.10 Atherosclerotic heart disease of native coronary artery without angina pectoris
CPT/HCPCS: 36415; 70450; 74176; 80048; 80053; 80076; 81003; 82947; 83690; 85014; 85018; 85025; 85027; 87045; 87086; 87088; 87186; 87427; 87493; 87899; 94640; 94664; 94760; 97110; 97116; 97162; 97166; 97530; 97535; 99285; G8978-GP; G8979-GP; G8987-GO; G8988-GO; G8989-GO; J0696; J1650

== ENCOUNTER → 2016-09-07 | Outpatient (CLI) | payer MEDICARE, BC ==
[~2016-09-07] MED LIST changes: +ARICEPT5 M1 PO; +BENTYL20 MG PO; +BREO ELLIPTA 11 EACH INH; +DESYREL50 MG PO; +DIAZEPAM2 MG PO; +FLONASE 0.05% N16 G1; +ISOSORBIDE MONO30 M1 PO; +LATANOPROST2.5 ML OU; +LO-DOSE ASPIRIN81 M1 PO; +LOSARTAN POTASS50 MG PO; +METOPROLOL SUCC25 MG PO; +NITROGLYGERIN0.4 MG SL; +NORVASC PO; +RESTASIS1 EACH OU; +SERTRALINE HCL100 M1 PO; +SYNTHROID125 PO; +VITAMIN D 22000 UNIT PO; +ZOFRAN PO
--- NOTE | ~2016-09-07 | US37 ---
[facility] A Service of [facility] RADIOLOGY TEXT RESULTS PATIENT: MELBA WATKINS LOCATION: CNIV : 34 UNIT #: [id number] AGE: [address]: Barbara Diaz MD SEX: F ORDER DR: [id number] [facility] [address] [facility]. [place], [place] [address] [id number] O MR#: [id number] Acc #: [id number] NAME: MELBA WATKINS : 1935 SEX: F STUDY DATE/TIME: 09/07/2016 12:41 UNIT: CNIV ROOM: STUDY DESCRIPTION: US Carotid W/Doppler Bilateral Attending Physician: Barbara Diaz M.D. Referring Physician: Barbara Diaz M.D. Ordering Physician: Barbara Diaz M.D. Primary Care Physician: Whit Meyers M.D. MEDICAL IMAGING REPORT This report is preliminary unless electronic signature is present EXAM Carotid Duplex scan. DATE OF EXAMINATION 09/07/2016 HISTORY Carotid stenosis. FINDINGS The right common carotid artery has a small amount of heterogeneous plaque. There is a large amount of heterogeneous dense plaque in the right carotid bulb which extends up into the proximal internal and external carotid arteries. Peak systolic velocity in the mid right internal carotid artery is 151 cm/sec with an end-diastolic velocity of 35 cm/sec. The ICA:CCA ratio on the right is 1.8. Peak systolic velocity in the right external carotid artery is 156 cm/sec. The right vertebral artery is patent with antegrade flow. The left common carotid artery has a small amount of heterogeneous plaque which extends up into the proximal internal and external carotid arteries. Peak systolic velocity in the proximal left internal carotid artery is 91 cm/sec, mid internal carotid artery 121 cm/sec and distal internal carotid artery 127 cm/sec. The ICA:CCA ratio on the left is 1.4. Peak systolic velocity in the left external carotid artery is 121 cm/sec. The left vertebral artery is patent with antegrade flow. IMPRESSION Moderate stenosis (50% to 69%) of the right internal carotid artery. Significant stenosis of the right external carotid artery. Small amount of plaque, but no significant stenosis (less than 50%) in the left internal and external carotid arteries. Patent vertebral arteries [facility] A Service of [facility] RADIOLOGY TEXT RESULTS PATIENT: MELBA WATKINS LOCATION: [facility] : 34 UNIT #: [id number] AGE: [address]: Barbara Diaz MD SEX: F ORDER DR: bilaterally with antegrade flow. Dictated by... Adan Perez M.D. THIS IS AN ELECTRONICALLY VERIFIED REPORT Adan Perez M.D. at 09/09/2016 7:28 AM TREVOR/sanjuana TD: 09/08/2016 00:10 JOB #: [id number] MEDICAL IMAGING REPORT Page 1 of 1 COPY
== END | disposition home or self-care (01) ==
LOC: CNIV 10:30
DX: I65.23 Occlusion and stenosis of bilateral carotid arteries (principal); I10 Essential (primary) hypertension; E78.00 Pure hypercholesterolemia, unspecified
CPT/HCPCS: 93880